=== PATIENT | male | born 1940 | race Caucasian/White ===

== ENCOUNTER → 2016-12-21 | Outpatient (CLI) | payer OTHER, BC ==
[~2016-12-21] MED LIST: ASPEC81 PO; COEN200C4 PO; GARL1CAP5 PO; MISCCAP63 PO; MULTTAB45 PO; OMEG1CAP26 PO
== END | disposition home or self-care (01) ==
LOC: C.LABSPEC 16:59
PROVIDERS: ATTEND Urology
DX: N39.0 Urinary tract infection, site not specified (principal); N40.1 Benign prostatic hyperplasia with lower urinary tract symptoms

== ENCOUNTER → 2017-06-14 | Outpatient (CLI) | payer OTHER, BC | END | disposition home or self-care (01) | LOC: C.LAB 07:44 | PROVIDERS: ATTEND Urology | DX: R97.20 Elevated prostate specific antigen [PSA] (principal); N40.1 Benign prostatic hyperplasia with lower urinary tract symptoms ==

== ENCOUNTER → 2017-06-21 | Outpatient (CLI) | payer OTHER, BC | END | disposition home or self-care (01) | LOC: C.LABSPEC 17:34 | PROVIDERS: ATTEND Urology | DX: N40.1 Benign prostatic hyperplasia with lower urinary tract symptoms (principal) ==

== ENCOUNTER → 2017-12-14 | Outpatient (CLI) | payer OTHER, BC ==
--- NOTE | 2017-12-14 12:38 | DIAGNOSTIC IMAGING REPORT ---
KUB CLINICAL HISTORY: N40.1 Benign prostatic hyperplasia with urinary obstruction COMPARISON STUDY: No previous studies for comparison. FINDINGS: There is no pathologic bowel dilatation. There are multiple pelvic basin calcifications, likely representing phleboliths. There is a 4 mm calcific density projected over the lower pole the left kidney. This could represent a lower pole renal calculus. IMPRESSION: Possible 5 mm lower pole left renal calculus. No evidence of pathologic bowel dilatation Electronically signed by: Rafi Atkinson M.D. 12/14/2017 12:37 PM Dictated Date/Time: 12/14/2017 12:36 PM
== END | disposition home or self-care (01) ==
LOC: C.RAD 12:12
PROVIDERS: ATTEND Urology
DX: N40.1 Benign prostatic hyperplasia with lower urinary tract symptoms (principal)

== ENCOUNTER → 2017-12-14 | Outpatient (CLI) | payer OTHER, BC | END | disposition home or self-care (01) | LOC: C.LABSPEC 16:59 | PROVIDERS: ATTEND Urology | DX: N40.1 Benign prostatic hyperplasia with lower urinary tract symptoms (principal) ==

== ENCOUNTER → 2018-03-22 | Outpatient (CLI) | payer OTHER, BC | END | disposition home or self-care (01) | LOC: C.LABSPEC 17:26 | PROVIDERS: ATTEND Urology | DX: N40.1 Benign prostatic hyperplasia with lower urinary tract symptoms (principal); R97.20 Elevated prostate specific antigen [PSA]; N39.0 Urinary tract infection, site not specified; R35.1 Nocturia ==